=== PATIENT | female | born 1995 | race Hispanic/Latino ===

== ENCOUNTER 2019-01-22 01:19 | Emergency (ER) | payer BC ==
--- NOTE | 2019-01-22 05:05 | XRay Report ---
CHEST 2 VIEWS INDICATION / CLINICAL INFORMATION: DIZZINESS. COMPARISON: None available. FINDINGS: SUPPORT DEVICES: None. HEART / MEDIASTINUM: No significant abnormality. LUNGS / PLEURA: No significant pulmonary or pleural abnormality. No pneumothorax. ADDITIONAL FINDINGS: No significant additional findings. IMPRESSION: 1. No acute findings. Signer Name: Matthew Montoya MD Signed: 01/22/2019 5:01 AM Workstation Name: [email or web address]
[2019-01-22 05:18] LABS: Basophils % (Auto) 0.7 % (0.0-1.8); Eosinophils # (Auto) 0.1 K/mm3 (0.0-0.4); Eosinophils % (Auto) 1.2 % (0.0-4.3); Hematocrit 36.9 % (30.3-42.9); Hemoglobin 12.6 gm/dl (10.1-14.3); INR 1.27 (0.87-1.13); Lymphocytes # (Auto) 2.2 K/mm3 (1.2-5.4); Lymphocytes % (Auto) 35.5 % (13.4-35.0); Mean Corpuscular HGB Conc 34 % (30-34); Mean Corpuscular Volume 94 fl (79-97); Monocytes # (Auto) 0.4 K/mm3 (0.0-0.8); Monocytes % (Auto) 6.8 % (0.0-7.3); Platelet Count 280 K/mm3 (140-440); Red Blood Count 3.94 M/mm3 (3.65-5.03); Red Cell Distribution Width 13.2 % (13.2-15.2)
[2019-01-22 05:19] LABS: Partial Thromboplastin Time 32.6 Sec. (24.2-36.6)
[2019-01-22 05:23] LABS: Bacteria,Urine 1+ /HPF (Negative); Bilirubin,Urine NEG (Negative); Blood,Urine NEG (Negative); Color,Urine Straw (Yellow); Protein,Urine <15 mg/dL mg/dL (Negative); Urobilinogen,Urine < 2.0 mg/dL (<2.0); WBC,Urine < 1.0 /HPF (0.0-6.0)
[2019-01-22 05:26] LABS: Amphetamine Screen,Urine PRESUMPTIVE NEGATIVE; Benzodiazepines Screen,Urine PRESUMPTIVE NEGATIVE; Cannabinoid Screen,Urine PRESUMPTIVE NEGATIVE; Cocaine Screen,Urine PRESUMPTIVE NEGATIVE; Methadone Screen,Urine PRESUMPTIVE NEGATIVE; Opiate Screen,Urine PRESUMPTIVE NEGATIVE
[2019-01-22 05:34] LABS: Alanine Aminotransferase 8 units/L (7-56); BUN/Creatinine Ratio 18; Blood Urea Nitrogen 9 mg/dL (7-17); Calcium 8.8 mg/dL (8.4-10.2); Hemolysis Index 13
--- NOTE | 2019-01-22 07:11 | Emergency Department Report ---
<KRISTINAIRINEOPATRICIA A - Last Filed: 01/22/19 09:53> ED General Adult HPI - General Chief complaint: Dizziness Stated complaint: POSS HIGH BP - Related Data Home Medications Medication Instructions Recorded Confirmed Last Taken Sertraline [Zoloft] 100 mg PO QDAY 10/17/13 10/17/13 10/17/13 12:00 Previous Rx's Medication Instructions Recorded Last Taken Type Fluconazole [Diflucan] 150 mg PO ONCE #1 tablet 10/18/13 Unknown Rx metroNIDAZOLE [Flagyl] 500 mg PO BID #14 tablet 10/18/13 Unknown Rx Clindamycin [Clindamycin CAP] 300 mg PO Q8H #21 cap 11/10/18 Unknown Rx Ibuprofen [Motrin 600 MG tab] 600 mg PO Q8H PRN #20 tablet 11/10/18 Unknown Rx methOCARBAMOL [Robaxin TAB] 500 mg PO Q6H PRN #14 tablet 11/10/18 Unknown Rx traMADoL [Ultram] 50 mg PO Q6HR PRN #12 tablet 11/10/18 Unknown Rx Levothyroxine [Synthroid] 25 mcg PO QAM #30 tablet 01/22/19 Unknown Rx Allergies Allergy/AdvReac Type Severity Reaction Status Date / Time [place]idy [place] fish Allergy Swelling Uncoded 10/17/13 23:52 blue star oint Allergy Rash Uncoded 10/17/13 23:52 ED Past Medical Hx - Medications Home Medications: Home Medications Medication Instructions Recorded Confirmed Last Taken Type Sertraline [Zoloft] 100 mg PO QDAY 10/17/13 10/17/13 10/17/13 12:00 History Fluconazole [Diflucan] 150 mg PO ONCE #1 tablet 10/18/13 Unknown Rx metroNIDAZOLE [Flagyl] 500 mg PO BID #14 tablet 10/18/13 Unknown Rx Clindamycin [Clindamycin CAP] 300 mg PO Q8H #21 cap 11/10/18 Unknown Rx Ibuprofen [Motrin 600 MG tab] 600 mg PO Q8H PRN #20 tablet 11/10/18 Unknown Rx methOCARBAMOL [Robaxin TAB] 500 mg PO Q6H PRN #14 tablet 11/10/18 Unknown Rx traMADoL [Ultram] 50 mg PO Q6HR PRN #12 tablet 11/10/18 Unknown Rx Levothyroxine [Synthroid] 25 mcg PO QAM #30 tablet 01/22/19 Unknown Rx ED Course - Reevaluation(s) Reevaluation #1: 01/22/19 09:45 stable and in no acute distress. She is updated on all her lab results. ED Medical Decision Making - Lab Data Result diagrams: 01/22/19 04:45 01/22/19 04:45 Lab Results 01/22/19 01/22/19 01/22/19 Range/Units 04:34 04:34 04:45 WBC 6.3 (4.5-11.0) K/mm3 RBC 3.94 (3.65-5.03) M/mm3 Hgb 12.6 (10.1-14.3) gm/dl Hct 36.9 (30.3-42.9) % MCV 94 (79-97) fl MCH 32 (28-32) pg MCHC 34 (30-34) % RDW 13.2 (13.2-15.2) % Plt Count 280 (140-440) K/mm3 Lymph % (Auto) 35.5 H (13.4-35.0) % Hyde % (Auto) 6.8 (0.0-7.3) % Eos % (Auto) 1.2 (0.0-4.3) % Baso % (Auto) 0.7 (0.0-1.8) % Lymph # 2.2 (1.2-5.4) K/mm3 Hyde # 0.4 (0.0-0.8) K/mm3 Eos # 0.1 (0.0-0.4) K/mm3 Baso # 0.0 (0.0-0.1) K/mm3 Seg Neutrophils % 55.8 (40.0-70.0) % Seg Neutrophils # 3.5 (1.8-7.7) K/mm3 PT (12.2-14.9) Sec. INR (0.87-1.13) APTT (24.2-36.6) Sec. D-Dimer (0-234) ng/mlDDU Sodium (137-145) mmol/L Potassium (3.6-5.0) mmol/L Chloride (98-107) mmol/L Carbon Dioxide (22-30) mmol/L Anion Gap mmol/L BUN (7-17) mg/dL Creatinine (0.7-1.2) mg/dL Estimated GFR ml/min BUN/Creatinine Ratio % Glucose (65-100) mg/dL Calcium (8.4-10.2) mg/dL Total Bilirubin (0.1-1.2) mg/dL AST (5-40) units/L ALT (7-56) units/L Alkaline Phosphatase (35-129) units/L Troponin T (0.00-0.029) ng/mL Total Protein (6.3-8.2) g/dL Albumin (3.9-5) g/dL Albumin/Globulin Ratio % TSH (0.270-4.200) mlU/mL Thyroxine (T4) (4.0-12.0) ug/dL Urine Color Straw (Yellow) Urine Turbidity Clear (Clear) Urine pH 6.0 (5.0-7.0) Ur Specific [place] 1.003 (1.003-1.030) Urine Protein <15 mg/dl (Negative) mg/dL Urine Glucose (UA) Neg (Negative) mg/dL Urine Ketones Neg (Negative) mg/dL Urine Blood Neg (Negative) Urine Nitrite Neg (Negative) Urine Bilirubin Neg (Negative) Urine Urobilinogen < 2.0 (<2.0) mg/dL Ur Leukocyte Esterase Neg (Negative) Urine WBC (Auto) < 1.0 (0.0-6.0) /HPF Urine RBC (Auto) 3.0 (0.0-6.0) /HPF U Epithel Cells (Auto) 2.0 (0-13.0) /HPF Urine Bacteria (Auto) 1+ (Negative) /HPF Urine Opiates Screen Presumptive negative Urine Methadone Screen Presumptive negative Ur Barbiturates Screen Presumptive negative Ur Phencyclidine Scrn Presumptive negative Ur Amphetamines Screen Presumptive negative U Benzodiazepines Scrn Presumptive negative Urine Cocaine Screen Presumptive negative U Marijuana (THC) Screen Presumptive negative Drugs of Abuse Note Disclamer 01/22/19 01/22/19 01/22/19 Range/Units 04:45 04:45 04:45 WBC (4.5-11.0) K/mm3 RBC (3.65-5.03) M/mm3 Hgb (10.1-14.3) gm/dl Hct (30.3-42.9) % MCV (79-97) fl MCH (28-32) pg MCHC (30-34) % RDW (13.2-15.2) % Plt Count (140-440) K/mm3 Lymph % (Auto) (13.4-35.0) % Hyde % (Auto) (0.0-7.3) % Eos % (Auto) (0.0-4.3) % Baso % (Auto) (0.0-1.8) % Lymph # (1.2-5.4) K/mm3 Hyde # (0.0-0.8) K/mm3 Eos # (0.0-0.4) K/mm3 Baso # (0.0-0.1) K/mm3 Seg Neutrophils % (40.0-70.0) % Seg Neutrophils # (1.8-7.7) K/mm3 PT 15.7 H (12.2-14.9) Sec. INR 1.27 H (0.87-1.13) APTT 32.6 (24.2-36.6) Sec. D-Dimer (0-234) ng/mlDDU Sodium 140 (137-145) mmol/L Potassium 4.1 (3.6-5.0) mmol/L Chloride 103.4 (98-107) mmol/L Carbon Dioxide 23 (22-30) mmol/L Anion Gap 18 mmol/L BUN 9 (7-17) mg/dL Creatinine 0.5 L (0.7-1.2) mg/dL Estimated GFR > 60 ml/min BUN/Creatinine Ratio 18 % Glucose 101 H (65-100) mg/dL Calcium 8.8 (8.4-10.2) mg/dL Total Bilirubin < 0.20 (0.1-1.2) mg/dL AST 14 (5-40) units/L ALT 8 (7-56) units/L Alkaline Phosphatase 53 (35-129) units/L Troponin T < 0.010 (0.00-0.029) ng/mL Total Protein 6.6 (6.3-8.2) g/dL Albumin 4.0 (3.9-5) g/dL Albumin/Globulin Ratio 1.5 % TSH 4.530 H (0.270-4.200) mlU/mL Thyroxine (T4) (4.0-12.0) ug/dL Urine Color (Yellow) Urine Turbidity (Clear) Urine pH (5.0-7.0) Ur Specific [place] (1.003-1.030) Urine Protein (Negative) mg/dL Urine Glucose (UA) (Negative) mg/dL Urine Ketones (Negative) mg/dL Urine Blood (Negative) Urine Nitrite (Negative) Urine Bilirubin (Negative) Urine Urobilinogen (<2.0) mg/dL Ur Leukocyte Esterase (Negative) Urine WBC (Auto) (0.0-6.0) /HPF Urine RBC (Auto) (0.0-6.0) /HPF U Epithel Cells (Auto) (0-13.0) /HPF Urine Bacteria (Auto) (Negative) /HPF Urine Opiates Screen Urine Methadone Screen Ur Barbiturates Screen Ur Phencyclidine Scrn Ur Amphetamines Screen U Benzodiazepines Scrn Urine Cocaine Screen U Marijuana (THC) Screen Drugs of Abuse Note 01/22/19 01/22/19 Range/Units 04:45 04:45 WBC (4.5-11.0) K/mm3 RBC (3.65-5.03) M/mm3 Hgb (10.1-14.3) gm/dl Hct (30.3-42.9) % MCV (79-97) fl MCH (28-32) pg MCHC (30-34) % RDW (13.2-15.2) % Plt Count (140-440) K/mm3 Lymph % (Auto) (13.4-35.0) % Hyde % (Auto) (0.0-7.3) % Eos % (Auto) (0.0-4.3) % Baso % (Auto) (0.0-1.8) % Lymph # (1.2-5.4) K/mm3 Hyde # (0.0-0.8) K/mm3 Eos # (0.0-0.4) K/mm3 Baso # (0.0-0.1) K/mm3 Seg Neutrophils % (40.0-70.0) % Seg Neutrophils # (1.8-7.7) K/mm3 PT (12.2-14.9) Sec. INR (0.87-1.13) APTT (24.2-36.6) Sec. D-Dimer < 135.00 (0-234) ng/mlDDU Sodium (137-145) mmol/L Potassium (3.6-5.0) mmol/L Chloride (98-107) mmol/L Carbon Dioxide (22-30) mmol/L Anion Gap mmol/L BUN (7-17) mg/dL Creatinine (0.7-1.2) mg/dL Estimated GFR ml/min BUN/Creatinine Ratio % Glucose (65-100) mg/dL Calcium (8.4-10.2) mg/dL Total Bilirubin (0.1-1.2) mg/dL AST (5-40) units/L ALT (7-56) units/L Alkaline Phosphatase (35-129) units/L Troponin T (0.00-0.029) ng/mL Total Protein (6.3-8.2) g/dL Albumin (3.9-5) g/dL Albumin/Globulin Ratio % TSH (0.270-4.200) mlU/mL Thyroxine (T4) 3.6 L (4.0-12.0) ug/dL Urine Color (Yellow) Urine Turbidity (Clear) Urine pH (5.0-7.0) Ur Specific [place] (1.003-1.030) Urine Protein (Negative) mg/dL Urine Glucose (UA) (Negative) mg/dL Urine Ketones (Negative) mg/dL Urine Blood (Negative) Urine Nitrite (Negative) Urine Bilirubin (Negative) Urine Urobilinogen (<2.0) mg/dL Ur Leukocyte Esterase (Negative) Urine WBC (Auto) (0.0-6.0) /HPF Urine RBC (Auto) (0.0-6.0) /HPF U Epithel Cells (Auto) (0-13.0) /HPF Urine Bacteria (Auto) (Negative) /HPF Urine Opiates Screen Urine Methadone Screen Ur Barbiturates Screen Ur Phencyclidine Scrn Ur Amphetamines Screen U Benzodiazepines Scrn Urine Cocaine Screen U Marijuana (THC) Screen Drugs of Abuse Note - Medical Decision Making Patient's T3 is still pending and T4 noted. Plans are already made for patient to follow-up with her primary care physician follow-up new-onset hypothyroidism started on medication. She is stable and in no distress. Vital signs stable she is afebrile. Discharge home in stable condition with prescription written by p.m. provider for level thyroxine. Patient aware that she is needs to have thyroid labs rechecked in 6 weeks after starting an initial dose. ED Disposition Clinical Impression: Episodic lightheadedness, Anxiety as acute reaction to exceptional stress Hypothyroid Qualifiers: Hypothyroidism type: unspecified Qualified Code(s): E03.9 - Hypothyroidism, unspecified Disposition: DC-01 TO HOME OR SELFCARE Condition: Stable Instructions: Hypothyroidism (ED), Generalized Anxiety Disorder (ED), Lightheadedness (ED) Additional Instructions: Follow-up with your primary care physician in 3-5 days for reevaluation. Return to the ED immediately if symptoms get worse. Prescriptions: Levothyroxine [Synthroid] 25 mcg PO QAM #30 tablet Referrals: JOHN SHEEHAN MD [Primary Care Provider] - 01/24/19 Print Language: TAIWANESE <ALEJANDRA RAMIREZ - Last Filed: 01/25/19 19:35> ED General Adult HPI - General Source: patient Mode of arrival: Ambulatory Limitations: No Limitations - History of Present Illness Initial comments: Patient is a 23-year-old white female with a history of chronic anxiety and depression who presents to the ED with complaint of acute onset persistent lightheadedness with elevated blood pressure, diaphoresis and subjective tachycardia the last 4 hours worse in the last 1 hour. Patient states that she was laying down in the bed when she started feeling lightheaded and when she checked her blood pressure was significantly high with a systolic of 180 and diastolic over 110. Patient states that she waited for another 30 minutes and rechecked her blood pressure and it was still high reading in the systolic of 150 and diastolic of 90. Patient states that at that time she was diaphoretic and her face was last and her lightheadedness got worse and when she checked her heart rate was between 130 and 140 bpm. Patient states that she decided to come to the ED for evaluation. Patient denies chest pain, shortness of breath, fever, chills, cough, nausea, vomiting, abdominal pain, change in vision, syncope, lack of appetite, chills or neck pain and sore throat or dysphagia. Complaint: lightheadedness; elevated BP; tachycardia -: Sudden, hour(s) (4) Location: head, chest Radiation: non-radiation Severity scale (0 -10): 1 Quality: dull Consistency: intermittent Improves with: none Worsens with: none Associated Symptoms: denies other symptoms, diaphoresis, loss of appetite, malaise. denies: confusion, chest pain, cough, fever/chills, nausea/vomiting, rash, seizure, shortness of breath, syncope, weakness Treatments Prior to Arrival: none ED Review of Systems ROS: Stated complaint: POSS HIGH BP Other details as noted in HPI Constitutional: diaphoresis, weakness. denies: chills, fever Eyes: other (lightheadedness). denies: eye pain, eye discharge, vision change ENT: denies: ear pain, throat pain Respiratory: denies: cough, shortness of breath, SOB with exertion, SOB at rest, wheezing Cardiovascular: palpitations. denies: chest pain, dyspnea on exertion, syncope, paroxysmal nocturnal dyspnea Endocrine: no symptoms reported, flushing Gastrointestinal: denies: abdominal pain, nausea, vomiting, diarrhea Genitourinary: denies: urgency, dysuria, frequency, hematuria, discharge Musculoskeletal: denies: back pain, joint swelling, arthralgia Skin: denies: rash, lesions Neurological: other (lightheadedness). denies: headache, weakness, paresthesias Psychiatric: anxiety. denies: depression Hematological/Lymphatic: denies: easy bleeding, easy bruising ED Past Medical Hx - Past Medical History Previous Medical History?: Yes Hx Psychiatric Treatment: Yes (anxiety) - Surgical History Past Surgical History?: No - Social History Smoking Status: Former Smoker Substance Use Type: None ED Physical Exam - General Limitations: No Limitations General appearance: alert, in no apparent distress - Head Head exam: Present: atraumatic, normocephalic, normal inspection - Eye Eye exam: Present: normal appearance, PERRL, EOMI Pupils: Present: normal accommodation - ENT ENT exam: Present: normal exam, normal orophraynx, mucous membranes moist, TM's normal bilaterally, normal external ear exam - Neck Neck exam: Present: normal inspection, full ROM - Respiratory Respiratory exam: Present: normal lung sounds bilaterally. Absent: respiratory distress, wheezes, rales, chest wall tenderness, accessory muscle use - Cardiovascular Cardiovascular Exam: Present: regular rate, normal rhythm, normal heart sounds. Absent: systolic murmur, diastolic murmur, rubs, gallop - GI/Abdominal GI/Abdominal exam: Present: soft, normal bowel sounds. Absent: tenderness, guarding, hyperactive bowel sounds, organomegaly - Extremities Exam Extremities exam: Present: normal inspection, full ROM, normal capillary refill - Back Exam Back exam: Present: normal inspection, full ROM. Absent: tenderness, CVA tend erness (L), muscle spasm - Neurological Exam Neurological exam: Present: alert, oriented X3, CN II-XII intact, normal gait, reflexes normal - Psychiatric Psychiatric exam: Present: normal affect, normal mood - Skin Skin exam: Present: warm, dry, intact, normal color. Absent: rash ED Course Vital Signs 01/22/19 01/22/19 01:25 09:39 Temperature 98.3 F Pulse Rate 95 H 82 Respiratory 18 16 Rate Blood Pressure 151/90 Blood Pressure 151/90 130/85 [Right] O2 Sat by Pulse 100 99 Oximetry ED Medical Decision Making - Lab Data Result diagrams: 01/22/19 04:45 01/22/19 04:45 - Radiology Data Radiology results: report reviewed, image reviewed Chest x-ray shows no acute cardiopulmonary abnormalities or pneumonitis - Medical Decision Making This is a 23-year-old white female with a history of bipolar disorder and anxiety presented to the ED with complaint of lightheadedness, elevated blood pressure and tachycardia for the last 4 hours intermittently. In the ED, patient is alert and oriented 3 and is not in distress but extremely anxious. The EKG shows normal sinus rhythm with ventricular rate of [address] or T-wave abnormalities. Lab test results were reviewed and show PT of 15.7 and INR 1.27 with normal PTT. D-dimer is negative and TSH is significantly elevated 4.530. The rest of the lab test results are unremarkable. The results of T3 and T4 are pending. Chest x-ray shows no acute cardiopulmonary abnormalities. On reevaluation, patient's symptoms have resolved and patient is resting comfortably in the bed talking to her . The patient care was transferred to Ms. Patricia Ocampo NP at shift change at 0730 hours. She shall review all lab t est results and disposition the patient appropriately - Differential Diagnosis dizziness; dehydration; anxiety d/o; CAD; PE; Hypothyroidism Critical care attestation.: If time is entered above; I have spent that time in minutes in the direct care o f this critically ill patient, excluding procedure time. ED Disposition Is pt being admited?: No Does the pt Need Aspirin: No Time of Disposition: 07:34
[2019-01-22 09:41] VITALS: BP 130/85
== END 2019-01-22 09:57 | disposition home or self-care (01) ==
LOC: ED 01:19
DX: E03.9 Hypothyroidism, unspecified (principal); F41.9 Anxiety disorder, unspecified; R42 Dizziness and giddiness; Z87.891 Personal history of nicotine dependence; Z79.899 Other long term (current) drug therapy; Z91.09 Other allergy status, other than to drugs and biological substances
CPT/HCPCS: 36415; 71046; 80053; 80307; 81001; 84436; 84443; 84481; 84484; 85025; 85379; 85610; 85730; 93005; 93010

== ENCOUNTER 2020-08-18 04:37 | Emergency (ER) | payer BC ==
[2020-08-18 04:45] VITALS: BP 133/87
--- NOTE | 2020-08-18 05:44 | Cat Scan Report ---
CT head without contrast INDICATION : Headache following injury TECHNIQUE: Axial imaging performed from the skull apex through the skull base without the use of con trast. All CT examinations performed at this facility utilize dose modulation, iterative reconstruct ion or weight-based dosing, when appropriate, to reduce radiation dose to as low as reasonably achiev able. COMPARISON: None FINDINGS: No acute intracranial hemorrhage or parenchymal abnormality. Ventricles are normal in si ze and appear symmetric. Soft tissues including the orbits appear normal. No acute osseous abnorm ality. Sinuses and mastoid air cells are clear. IMPRESSION: No acute intracranial abnormality. Signer Name: Matthew Montoya MD Signed: 08/18/2020 5:39 AM Workstation Name: [id number]
--- NOTE | 2020-08-18 07:26 | Emergency Department Report ---
ED General Adult HPI - General Chief complaint: Wound/Laceration Stated complaint: HEAD INJURY Time Seen by Provider: 08/18/20 07:24 Source: patient Mode of arrival: Ambulatory Limitations: No Limitations - History of Present Illness Initial comments: 25-year-old female patient presents with complaints of laceration to the scalp around 4 AM. Patient states a glass Fell on her head. Though the nurses notes states patient blacked out, patient denies any loss of consciousness. She also denies any neck pain, nausea/vomiting, dizziness, visi on changes, numbness/tingling/weakness in her limbs, confusion, or difficulty with speech/ambulation. She does report a headache that she rates as 8/10 in severity. No blood thinner use per patient. Past medical history includes anxiety -: Sudden Severity scale (0 -10): 0 - Related Data Home Medications Medication Instructions Recorded Confirmed Last Taken Sertraline [Zoloft] 100 mg PO QDAY 10/17/13 10/17/13 10/17/13 12:00 Previous Rx's Medication Instructions Recorded Last Taken Type Fluconazole [Diflucan] 150 mg PO ONCE #1 tablet 10/18/13 Unknown Rx metroNIDAZOLE [Flagyl] 500 mg PO BID #14 tablet 10/18/13 Unknown Rx Clindamycin [Clindamycin CAP] 300 mg PO Q8H #21 cap 11/10/18 Unknown Rx Ibuprofen [Motrin 600 MG tab] 600 mg PO Q8H PRN #20 tablet 11/10/18 Unknown Rx methOCARBAMOL [Robaxin TAB] 500 mg PO Q6H PRN #14 tablet 11/10/18 Unknown Rx traMADoL [Ultram] 50 mg PO Q6HR PRN #12 tablet 11/10/18 Unknown Rx Levothyroxine [Synthroid] 25 mcg PO QAM #30 tablet 01/22/19 Unknown Rx Mupirocin [Bactroban 2% OINT] 1 applic TP TID 7 Days #1 tube 08/18/20 Unknown Rx Allergies Allergy/AdvReac Type Severity Reaction Status Date / Time [place] fish Allergy Swelling Uncoded 10/17/13 23:52 blue star oint Allergy Rash Uncoded 10/17/13 23:52 ED Review of Systems ROS: Stated complaint: HEAD INJURY Other details as noted in HPI Constitutional: denies: malaise, weakness Skin: denies: change in color Neurological: headache. denies: weakness, numbness, paresthesias, abnormal gait ED Past Medical Hx - Past Medical History Previous Medical History?: Yes Hx Psychiatric Treatment: Yes (anxiety) - Surgical History Past Surgical History?: No - Social History Smoking Status: Never Smoker Substance Use Type: Marijuana - Medications Home Medications: Home Medications Medication Instructions Recorded Confirmed Last Taken Type Sertraline [Zoloft] 100 mg PO QDAY 10/17/13 10/17/13 10/17/13 12:00 History Fluconazole [Diflucan] 150 mg PO ONCE #1 tablet 10/18/13 Unknown Rx metroNIDAZOLE [Flagyl] 500 mg PO BID #14 tablet 10/18/13 Unknown Rx Clindamycin [Clindamycin CAP] 300 mg PO Q8H #21 cap 11/10/18 Unknown Rx Ibuprofen [Motrin 600 MG tab] 600 mg PO Q8H PRN #20 tablet 11/10/18 Unknown Rx methOCARBAMOL [Robaxin TAB] 500 mg PO Q6H PRN #14 tablet 11/10/18 Unknown Rx traMADoL [Ultram] 50 mg PO Q6HR PRN #12 tablet 11/10/18 Unknown Rx Levothyroxine [Synthroid] 25 mcg PO QAM #30 tablet 01/22/19 Unknown Rx Mupirocin [Bactroban 2% OINT] 1 applic TP TID 7 Days #1 tube 08/18/20 Unknown Rx ED Physical Exam - General Limitations: No Limitations General appearance: alert, in no apparent distress - Head Head exam: Present: normocephalic - Expanded Head Exam Expanded Head exam: Present: laceration (2.5 cm laceration noted to left frontal scalp without active bleeding). Absent: contusion, hematoma, racoon eyes, zabala's sign - Eye Eye exam: Present: normal appearance, PERRL, EOMI. Absent: scleral icterus - Neck Neck exam: Present: normal inspection, full ROM. Absent: tenderness - Respiratory Respiratory exam: Absent: respiratory distress - Cardiovascular Cardiovascular Exam: Present: regular rate - Neurological Exam Neurological exam: Present: alert, oriented X3, CN II-XII intact, normal gait. Absent: motor sensory deficit - Expanded Neurological Exam Expanded Cerebellar function: Finger to Nose: Normal, Heel to [place]rade: Normal, Romberg: Normal Sensory exam: Upper Extremity Light Touch: Normal, Lower Extremity Light Touch: Normal Motor strength exam: RUE: 5, LUE: 5, RLE: 5, LLE: 5 Best Eye Response ([place]): (4) open spontaneously Best Motor Response ([place]): (6) obeys commands Best Verbal Response ([place]): (5) oriented Vianey Total: 15 - Psychiatric Psychiatric exam: Present: normal affect, normal mood - Skin Skin exam: Present: warm, dry, normal color. Absent: rash, cyanosis, diaphoretic, ecchymosis ED Course Vital Signs 08/18/20 04:41 Temperature 98 F Pulse Rate 88 Respiratory 18 Rate Blood Pressure 133/87 [Left] O2 Sat by Pulse 95 Oximetry - Laceration /Wound Repair Head Wound Length (cm): 3 Wound's Depth, Shape: linear Wound Explored: clean Irrigated w/ Saline (ccs): 30 Betadine Prep?: Yes Anesthesia: 1% Lidocaine Volume Anesthetic (ccs): 2 Number of Sutures: 3 (Stable) Layer Closure?: No Sterile Dressing Applied?: No Progress: No bleeding occurred. Patient tolerated procedure well without any immediate complications. ED Medical Decision Making - Radiology Data Radiology results: report reviewed INDICATION : Headache following injury TECHNIQUE: Axial imaging performed from the skull apex through the skull base without the use of contrast. All CT examinations performed at this facility utilize dose modulation, iterative reconstruction or weight-based dosing, when appropriate, to reduce radiation dose to as low as reasonably achievable. COMPARISON: None FINDINGS: No acute intracranial hemorrhage or parenchymal abnormality. Ventricles are normal in size and appear symmetric. Soft tissues including the orbits appear normal. No acute osseous abnormality. Sinuses and mastoid air cells are clear. IMPRESSION: No acute intracranial abnormality. - Medical Decision Making 25-year-old female patient presents with complaints of laceration to the scalp around 4 AM. Patient states a glass Fell on her head. She states she blacked out for less than 1 second, but denies actual loss of consciousness, neck pain, nausea/vomiting, dizziness, vision changes, numbness/tingling/weakness in her limbs, confusion, or difficulty with speech/ambulation. She does report a headache that she rates as 8/10 in severity. No blood thinner use per patient. She denies any prior medical history. CT head is normal. Patient is neurologically intact on exam. Laceration repair he is jun. Patient tolerated procedure well without any immediate complications. Discussed wound care and strict return precautions in detail with patient who verbalized understanding. Patient to return to the emergency department in 8 days for staple removal. Prescription for mupirocin given for infection prevention. Her vitals are within normal limits, she is well- appearing, ambulatory, she is stable for discharge home. Critical care attestation.: If time is entered above; I have spent that time in minutes in the direct care of this critically ill patient, excluding procedure time. ED Disposition Clinical Impression: Laceration of head Disposition: DC-01 TO HOME OR SELFCARE Is pt being admited?: No Condition: Stable Instructions: Sutures, [place], or Adhesive Wound Closure, [id number] Additional Instructions: Return to the emergency department in 7 days for staple removal Prescriptions: Mupirocin [Bactroban 2% OINT] 1 applic TP TID 7 Days #1 tube Referrals: PRIMARY CARE, [Referring] - 3-5 Days
[2020-08-18] MEDS ORDERED: TETANUS,DIPH,PERTUSS(ACELL) VACCINE 0.5 ML SYRINGE IM ONE (07:47)
[2020-08-18] MEDS ORDERED: ACETAMINOPHEN 500 MG TAB PO STA (07:55)
[2020-08-18] MEDS ORDERED: IBUPROFEN 800 MG TAB PO STA (07:55)
== END 2020-08-18 08:09 | disposition home or self-care (01) ==
LOC: ED 04:37
DX: S01.01XA Laceration without foreign body of scalp, initial encounter (principal); F41.9 Anxiety disorder, unspecified; F12.10 Cannabis abuse, uncomplicated; Z79.1 Long term (current) use of non-steroidal anti-inflammatories (NSAID); Z79.2 Long term (current) use of antibiotics; Z79.899 Other long term (current) drug therapy; Z88.8 Allergy status to other drugs, medicaments and biological substances; W20.8XXA Other cause of strike by thrown, projected or falling object, initial encounter; Y93.89 Activity, other specified; Y92.89 Other specified places as the place of occurrence of the external cause; Y99.8 Other external cause status
CPT/HCPCS: 70450; 90471; 90715

== ENCOUNTER 2020-08-26 12:20 | Emergency (ER) | payer BC ==
[2020-08-26 12:42] VITALS: BP 117/83
--- NOTE | 2020-08-26 13:07 | Emergency Department Report ---
Suture/Staple Removal - HPI Chief Complaint: Laceration/Recheck/Suture Stated Complaint: STAPLE REMOVAL FROM HEAD Time Seen by Provider: 08/26/20 12:46 When Sutures or Jun Placed: 8-10 Days Ago Wound Location: top of head left side ED Review of Systems ROS: Stated complaint: STAPLE REMOVAL FROM HEAD Other details as noted in HPI Comment: All other systems reviewed and negative Constitutional: denies: chills, fever Eyes: denies: eye pain, eye discharge, vision change ENT: denies: ear pain, throat pain Respiratory: denies: cough, shortness of breath, wheezing Cardiovascular: denies: chest pain, palpitations Endocrine: no symptoms reported Gastrointestinal: denies: abdominal pain, nausea, diarrhea Genitourinary: denies: urgency, dysuria, discharge Musculoskeletal: denies: back pain, joint swelling, arthralgia Skin: denies: rash, lesions Neurological: denies: headache, weakness, paresthesias Psychiatric: denies: anxiety, depression Hematological/Lymphatic: denies: easy bleeding, easy bruising ED Past Medical Hx - Past Medical History Previous Medical History?: Yes Hx Psychiatric Treatment: Yes (anxiety) Additional medical history: LUPUS - Surgical History Past Surgical History?: No - Social History Smoking Status: Never Smoker Substance Use Type: Marijuana - Medications Home Medications: Home Medications Medication Instructions Recorded Confirmed Last Taken Type Sertraline [Zoloft] 100 mg PO QDAY 10/17/13 10/17/13 10/17/13 12:00 History Fluconazole [Diflucan] 150 mg PO ONCE #1 tablet 10/18/13 Unknown Rx metroNIDAZOLE [Flagyl] 500 mg PO BID #14 tablet 10/18/13 Unknown Rx Clindamycin [Clindamycin CAP] 300 mg PO Q8H #21 cap 11/10/18 Unknown Rx Ibuprofen [Motrin 600 MG tab] 600 mg PO Q8H PRN #20 tablet 11/10/18 Unknown Rx methOCARBAMOL [Robaxin TAB] 500 mg PO Q6H PRN #14 tablet 11/10/18 Unknown Rx traMADoL [Ultram] 50 mg PO Q6HR PRN #12 tablet 11/10/18 Unknown Rx Levothyroxine [Synthroid] 25 mcg PO QAM #30 tablet 01/22/19 Unknown Rx Mupirocin [Bactroban 2% OINT] 1 applic TP TID 7 Days #1 tube 06/30/21 Unknown Rx Suture Removal Exam - Exam General: Vital signs noted. No distress. Alert and acting appropriately. Wound: No Pathologic Erythema, No Tenderness, No Drainage, No Pus, No Wound Dehiscence Other Systems: All other systems reviewed and are unremarkable. ED Course Vital Signs 08/26/20 12:42 Temperature 98.5 F Pulse Rate 74 Respiratory 18 Rate Blood Pressure 117/83 O2 Sat by Pulse 99 Oximetry - Reevaluation(s) Reevaluation #1: 08/26/20 13:05 Patient is speaking in full sentences with no signs of distress noted. ED Recheck MDM - Medical Decision Making This is a [id number] female that presents with staple removal. She is stable and was examined by me. Total of 3 jun has been removed and patient tolerated well. No signs of wound dehiscence, drainage, or cellulitis. Patient was referred to Follow-up with a primary care doctor in 3-5 days or if symptoms worsen and continue return to emergency room as soon as possible. At time of discharge, the patient does not seem toxic or ill in appearance. No acute signs of distress noted. Patient agrees to discharge treatment plan of care. No further questions noted by the patient. Critical care attestation.: If time is entered above; I have spent that time in minutes in the direct care of this critically ill patient, excluding procedure time. ED Disposition Clinical Impression: Encounter for staple removal Disposition: DC-01 TO HOME OR SELFCARE Is pt being admited?: No Does the pt Need Aspirin: No Condition: Stable Additional Instructions: Follow-up with a primary care doctor in 3-5 days or if symptoms worsen and continue return to emergency room as soon as possible. Referrals: PRIMARY MD RUDDY [Referring] - 3-5 Days ETHEL FOREMAN MD [Staff Physician] - 3-5 Days Time of Disposition: 13:07
== END 2020-08-26 14:04 | disposition home or self-care (01) ==
LOC: ED 12:20
DX: S09.90XD Unspecified injury of head, subsequent encounter (principal); Z48.02 Encounter for removal of sutures; F12.10 Cannabis abuse, uncomplicated; F41.9 Anxiety disorder, unspecified; Z79.899 Other long term (current) drug therapy; Z88.8 Allergy status to other drugs, medicaments and biological substances; X58.XXXD Exposure to other specified factors, subsequent encounter